=== PATIENT | male | born 1965 | race Caucasian/White ===

== ENCOUNTER → 2017-02-09 | Outpatient (CLI) | payer BC ==
[~2017-02-09] MED LIST: COZAAR 50MG50 MG/TAB PO; HCTZ 25MG TAB25 MG PO; NORVASC 5MG5 MG/TAB PO
== END ==
LOC: COL.RAD 15:18
DX: K76.89 Other specified diseases of liver (principal); K82.8 Other specified diseases of gallbladder; R10.84 Generalized abdominal pain; R11.0 Nausea
CPT/HCPCS: Q9967

== ENCOUNTER → 2017-02-17 | Outpatient (CLI) | payer BC | LOC: COL.RAD 08:00 | DX: R42 Dizziness and giddiness (principal) | CPT/HCPCS: A9585 ==

== ENCOUNTER → 2017-05-03 | Outpatient (CLI) | payer BC | LOC: COL.RAD 11:43 | DX: R10.11 Right upper quadrant pain (principal) ==

== ENCOUNTER → 2017-08-31 | Outpatient (CLI) | payer BC | LOC: COL.RAD 11:45 | DX: K31.84 Gastroparesis (principal); K59.00 Constipation, unspecified ==

== ENCOUNTER → 2017-09-05 | Outpatient (CLI) | payer BC | LOC: COL.RAD 12:00 | DX: K59.00 Constipation, unspecified (principal); K31.84 Gastroparesis ==

== ENCOUNTER → 2020-05-06 | Outpatient (CLI) | payer BC | LOC: COL.RAD 14:30 | DX: J32.9 Chronic sinusitis, unspecified (principal); R09.82 Postnasal drip ==